=== PATIENT | male | born 1985 | race Caucasian/White ===

== ENCOUNTER 2017-01-14 06:10 | Day surgery (SDC) | payer OTHER ==
[2017-01-13 13:32] LABS: HEMATOCRIT 43.5 % (40.0-51.0); HEMOGLOBIN 14.6 g/dL (13.6-17.8)
[2017-01-13 13:48] LABS: BUN (BLOOD UREA NITROGEN) 8 MG/DL (6-23); CALCIUM, SERUM 9.4 MG/DL (8.5-10.4); CHLORIDE, SERUM 102 MMOL/L (96-112); CO2 (CARBON DIOXIDE) 29 MMOL/L (24-34); CREATININE 0.82 MG/DL (0.70-1.30); GFR AFRICAN AMERICAN 136 ML/MIN (>=60); GFR NON AFRICAN AMERICAN 117 ML/MIN (>=60); GLUCOSE, SERUM 85 MG/DL (60-99); POTASSIUM, SERUM 4.5 MMOL/L (3.5-5.3); SODIUM, SERUM 140 MMOL/L (135-148)
[~2017-01-14] VITALS: Ht 170.2 cm; Wt 74.2 kg
--- NOTE | ~2017-01-14 | OP ---
Record Of Operation [facility] [address] [place]. [address] NAME: CHANDRAKANT GANDHI : 83 [place] [facility] [place] [id number] AGE: 31 ADM/REG DATE : 01/14/17 MR#: [id number] REPORT SERV DATE: 01/14/17 DICTATED BY: FIDENCIO DODGE DATE: 01/14/17 REPORT STATUS : Draft TRANSCRIBED BY: MODL DATE: 01/14/17 DATE OF PROCEDURE: 01/14/2017 PREOPERATIVE DIAGNOSES: 1. Bilateral chronic ethmoid sinusitis. 2. Bilateral chronic maxillary sinusitis. 3. Bilateral chronic sphenoid sinusitis. 4. Bilateral chronic frontal sinusitis. POSTOPERATIVE DIAGNOSES: 1. Bilateral chronic ethmoid sinusitis. 2. Bilateral chronic maxillary sinusitis. 3. Bilateral chronic sphenoid sinusitis. 4. Bilateral chronic frontal sinusitis. PROCEDURES: 1. Bilateral total ethmoidectomy. 2. Bilateral maxillary sinusectomy. 3. Bilateral sphenoidotomy with tissue removal. 4. Bilateral frontal sinusotomy. 5. Use of extradural cranial navigation system, [id number]. INDICATIONS: Chandrakant Gandhi is a 31-year-old male with history of chronic sinusitis. I counseled him about the risks, benefits, and alternatives of endoscopic sinus surgery versus continuing therapy with oral antibiotics and other medications. The risks include, but are not limited to pain, bleeding, infection, and scarring. I quoted him a 15% risk of needing a revision surgery at some point in time. He voiced an understanding of those risks and he signed a consent form. PROCEDURE IN DETAIL: Chandrakant was brought to the operating room and positioned on the table in a supine manner. General endotracheal anesthesia was induced. The table was rotated 180 degrees. The patient was prepped and draped in the usual fashion. 0.5 x3 cotton pledgets containing the 1:1000 epinephrine solution were placed into the nasal cavities bilaterally. These were left in place for 3 minutes and then we used a 0 degree sinus endoscope viewed from the TV monitor, to place a pack in the sphenoethmoid recess and up under the middle turbinate bilaterally as well. After 2 minutes, we removed these packs from the left side. The sinus navigation system was initialized according to protocol at the beginning of the case and thereafter appeared to be functioning normally. The factory rep was not in the room for the registration. The left sphenoethmoid recess was visualized by lateralizing the middle and superior turbinates. This was enlarged with suction verified by the sinus navigation system and then enlarged a bit with the Mihir-Cut forceps and finally with the sinus shaver. We had about a 9 mm sphenoidotomy when finished. Record Of Operation [facility] [address] [place]. [address] NAME: CHANDRAKANT GANDHI : 83 [place] [facility] [place] [id number] AGE: 31 ADM/REG DATE : 01/14/17 MR#: [id number] REPORT SERV DATE: 01/14/17 DICTATED BY: FIDENCIO DODGE DATE: 01/14/17 REPORT STATUS : Draft TRANSCRIBED BY: MERRILL DATE: 01/14/17 The left middle turbinate was medialized and the uncinate process was back elevated toward the surgeon with the sinus probe. A backbiting forceps was used to cut a slot into this inferiorly and then we used the backbiter and the Mihir-Cut forceps to remove most of the uncinate process, and the remainder was trimmed with the straight sinus shaver blade. Using the 0-degree sinus endoscope and the straight sinus shaver blade, total ethmoidectomy was performed preserving the middle and superior turbinates. The fovea ethmoidalis and the lamina papyracea. Once we had reached the posterior limits of the ethmoid, we came up to the roof and came from posterior to anterior along the roof of the ethmoid up to the agger Nasi area. Agger Nasi air cell material was then removed with the Mihir-Cut up-biting forceps and the frontal sinus forceps. The curved sinus blade was used to trim these tissues. We had excellent visualization up into the frontal sinus. At the end of this and suction, entered the frontal sinus easily on the left side. We then turned our attention with the 30 degree sinus endoscope to the maxillary sinusotomy, which was enlarged and trimmed with the curved sinus blade, and the mucous retention cyst was removed from the floor of the maxillary sinus on that side. This was thoroughly irrigated. Packs were placed into the left side to help with hemostasis. The right side was then operated on in a manner similar to the left. Following this, the packs were taken out the left side. The left side was thoroughly irrigated. All clots and bone chips were removed. We placed a Propel sinus stent in the ethmoid position and then placed some Surgiflo and then placed the Propel and the Surgiflo on the right side as well. After 5 minutes, we irrigated out most of the Surgiflo and no bleeding was detected on either side. The nasopharynx was suctioned. A drip pad was placed. The patient was returned to anesthesia control. He was extubated in the operating room and moved to the recovery room in good condition. FINDINGS: 1. Estimated blood loss 50 mL. 2. Total fluids given 800 mL of Ringer's lactate. 3. Significant chronic inflammation was found in the maxillary sinuses, right greater than left. 4. The patient had chronic inflammation in the ethmoids bilaterally. 5. The patient's vision was normal in the recovery room at the end of the procedure. BARBARA/MERRILL Fidencio Dodge M.D. / [id number] CC: Jackelyn Jefferson M.D.
[~2017-01-14 06:10] MED LIST: *DENIES
== END 2017-01-14 12:34 | disposition home or self-care (01) ==
LOC: SDC 06:10
PROVIDERS: Otolaryngology
PROC: 09CX4ZZ Extirpation of Matter from Left Sphenoid Sinus, Percutaneous Endoscopic Approach (ICD-10-PCS; 2017-01-14)
PROC: 09CW4ZZ Extirpation of Matter from Right Sphenoid Sinus, Percutaneous Endoscopic Approach (ICD-10-PCS; 2017-01-14)
PROC: 09BT4ZZ Excision of Left Frontal Sinus, Percutaneous Endoscopic Approach (ICD-10-PCS; 2017-01-14)
PROC: 09BS4ZZ Excision of Right Frontal Sinus, Percutaneous Endoscopic Approach (ICD-10-PCS; 2017-01-14)
PROC: 8E09XBZ Computer Assisted Procedure of Head and Neck Region (ICD-10-PCS; principal; 2017-01-14 07:15)
PROC: 09TV4ZZ Resection of Left Ethmoid Sinus, Percutaneous Endoscopic Approach (ICD-10-PCS; 2017-01-14 07:15)
PROC: 09TU4ZZ Resection of Right Ethmoid Sinus, Percutaneous Endoscopic Approach (ICD-10-PCS; 2017-01-14 07:15)
PROC: 09BR4ZZ Excision of Left Maxillary Sinus, Percutaneous Endoscopic Approach (ICD-10-PCS; 2017-01-14 07:15)
PROC: 09BQ4ZZ Excision of Right Maxillary Sinus, Percutaneous Endoscopic Approach (ICD-10-PCS; 2017-01-14 07:15)
DX: J32.0 Chronic maxillary sinusitis (principal); K21.9 Gastro-esophageal reflux disease without esophagitis; F41.9 Anxiety disorder, unspecified; F17.210 Nicotine dependence, cigarettes, uncomplicated; Z98.890 Other specified postprocedural states
CPT/HCPCS: 80048; 85014; 85018; 88305; A9270-GY; C2625; J2250; J2405; J2710; J3010